=== PATIENT | female | born 1990 | race American Indian/Alaskan Native ===

== ENCOUNTER 2019-07-12 19:56 | Emergency (ER) | payer SELFPAY ==
[2019-07-12 20:09] VITALS: BP 119/71
--- NOTE | 2019-07-12 20:14 | Event Note ---
ED Screening Note Date of service: 07/12/19 Time: 20:11 ED Screening Note: This is a 29 y.o. F. that presents to the ER with vaginal discharge and dental pain. Reports vaginal discharge for 3-4 days and dental pain for 1 month. + pelvic pain, vaginal discharge - dysuria, back pain, urinary frequency This initial assessment/diagnostic orders/clinical plan/treatment(s) is/are subject to change based on patients health status, clinical progression and re- assessment by fellow clinical providers in the ED. Further treatment and workup at subsequent clinical providers discretion. Patient/guardian urged not to elope from the ED as their condition may be serious if not clinically assessed and managed. Initial orders include: UA and hCG
[2019-07-12 20:40] LABS: Bilirubin,Urine NEG (Negative); Blood,Urine NEG (Negative); Color,Urine Yellow (Yellow); HCG Qualitative,Urine Negative (Negative); Mucus,Urine 2+ /HPF; Protein,Urine <15 mg/dL mg/dL (Negative); Urobilinogen,Urine < 2.0 mg/dL (<2.0)
--- NOTE | 2019-07-12 21:12 | Emergency Department Report ---
ED General Adult HPI - General Chief complaint: Dental/Oral Stated complaint: POSS PREG/TOOTH INFECTION/VAG IRRITATION Time Seen by Provider: 07/12/19 20:10 Source: patient Mode of arrival: Ambulatory Limitations: No Limitations - History of Present Illness Initial comments: patient is a 29-year-old female presents emergency room with complaints of a le ft lower toothache that began a month ago. she states that she has a cracked tooth on the left lower side. States that she has not seen a dentist. Denies any fever or facial swelling. States that she has also had vaginal irritation for a over a week. She states she has white vaginal discharge which is causing irritation. denies any fever, chills, vomiting, diarrhea, abdominal pain, vaginal lesions/blisters. she states her LMP was 06/03/19 and she was concerned for the possibility of . - Related Data Previous Rx's Medication Instructions Recorded Last Taken Type Fluconazole [Diflucan TAB] 150 mg PO ONCE #1 tablet 07/12/19 Unknown Rx metroNIDAZOLE [Flagyl] 500 mg PO BID 7 Days #14 tab 07/12/19 Unknown Rx Allergies Allergy/AdvReac Type Severity Reaction Status Date / Time No Known Allergies Allergy Unverified 07/12/19 20:13 ED Review of Systems ROS: Stated complaint: POSS PREG/TOOTH INFECTION/VAG IRRITATION Other details as noted in HPI Comment: All other systems reviewed and negative ED Past Medical Hx - Past Medical History Previous Medical History?: Yes Additional medical history: Ectopic - Surgical History Past Surgical History?: Yes 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 - Social History Smoking Status: Never Smoker - Medications Home Medications: Home Medications Medication Instructions Recorded Confirmed Last Taken Type Fluconazole [Diflucan TAB] 150 mg PO ONCE #1 tablet 07/12/19 Unknown Rx metroNIDAZOLE [Flagyl] 500 mg PO BID 7 Days #14 tab 07/12/19 Unknown Rx ED Physical Exam - General Limitations: No Limitations General appearance: alert, in no apparent distress - Head Head exam: Present: atraumatic, normocephalic - Eye Eye exam: Present: normal appearance - ENT ENT exam: Present: mucous membranes moist, other (partially cracked tooth at tooth number 18 with dental carry present, no edema of the gum line, no facial edema, uvula is midline, no uvular edema) - Respiratory Respiratory exam: Present: normal lung sounds bilaterally. Absent: respiratory distress, wheezes, rales, rhonchi, stridor, chest wall tenderness, accessory muscle use, decreased breath sounds, prolonged expiratory - Cardiovascular Cardiovascular Exam: Present: regular rate, normal rhythm, normal heart sounds. Absent: systolic murmur, diastolic murmur, rubs, gallop - GI/Abdominal GI/Abdominal exam: Present: soft, normal bowel sounds. Absent: distended, tenderness, guarding, rebound, rigid - Back Exam Back exam: Absent: CVA tenderness (R), CVA tenderness (L) - Neurological Exam Neurological exam: Present: alert, oriented X3 - Psychiatric Psychiatric exam: Present: normal affect, normal mood - Skin Skin exam: Present: warm, dry, intact ED Course Vital Signs 07/12/19 07/12/19 20:02 20:13 Temperature 98.1 F 98.1 F Pulse Rate 91 H 91 H Respiratory 18 18 Rate Blood Pressure 119/71 119/71 O2 Sat by Pulse 97 97 Oximetry ED Medical Decision Making - Medical Decision Making patient is a 29-year-old female presents emergency room with complaints of a left lower toothache that began a month ago. she states that she has a cracked tooth on the left lower side. States that she has not seen a dentist. Denies any fever or facial swelling. States that she has also had vaginal irritation for a over a week. She states she has white vaginal discharge which is causing irritation. denies any fever, chills, vomiting, diarrhea, abdominal pain, vaginal lesions/blisters. she states her LMP was 06/03/19 and she was concerned for the possibility of . vitals are normal. urine preg is negative. UA without evidence of UTI. pt is afebrile no tachycardia. on exam: partially cracked tooth at tooth number 18 with dental carry present, no edema of the gum line, no facial edema, uvula is midline, no uvular edema, no signs of dental abscess/dental infection, no facial cellulitis, no abd tenderness on exam, no CVAT. no clinical s/sx of PID or TOA. Advised patient to take Tylenol or ibuprofen for her dental pain and to follow-up with a dentist. given list of community dental clinics. pt given prescription for Flagyl and fluconazole for her vaginitis. Advised patient to take medication as prescribed and do not drink alcohol while taking medication. advised patient please be seen by an [employer] or the health department for A full STD panel and to be treated. discussed with pt the importance of her follow up to avoid PID/infertility if STD is present, pt verbalized understanding. Also discussed with pt to patient to please have partner tested and treated as well. abstain from sexual intercourse for 10 days. Return to the emergency room for new or worsening symptoms. - Differential Diagnosis dental caries, dental abscess, vaginitis, STD, BV, yeast, UTI Critical care attestation.: If time is entered above; I have spent that time in minutes in the direct care of this critically ill patient, excluding procedure time. ED Disposition Clinical Impression: Toothache, Cracked tooth, Dental caries Vaginitis Qualifiers: Chronicity: acute Qualified Code(s): N76.0 - Acute vaginitis Disposition: - TO HOME OR SELFCARE Is pt being admited?: No Does the pt Need Aspirin: No Condition: Stable Instructions: Dental Caries (ED), Vaginitis (ED) Additional Instructions: take Tylenol or ibuprofen as needed for dental pain and follow-up with a dentist in the next 2-3 days. given list of community dental clinics. please take medication as prescribed and do not drink alcohol while taking medication. please be seen by an [employer] O[employer]ATOR or the health department in the next 2-3 days for A full STD panel and to be treated. it is very important you follow up to have this completed to see if you need further treatment. please have partner tested and treated as well. abstain from sexual intercourse for 10 days. Return to the emergency room for new or worsening symptoms. Prescriptions: Fluconazole [Diflucan TAB] 150 mg PO ONCE #1 tablet metroNIDAZOLE [Flagyl] 500 mg PO BID 7 Days #14 tab Referrals: [facility] [place]Outside] - 2-[address] [facility] [Outside] - 2-3 Days [facility] [Outside] - 2-3 Days [facility] [Outside] - 2-3 Days Time of Disposition: 21:13 Print Language: [id number]
== END 2019-07-12 21:24 | disposition home or self-care (01) ==
LOC: ED 19:56
DX: K03.81 Cracked tooth (principal); K02.9 Dental caries, unspecified; N76.0 Acute vaginitis; B96.89 Other specified bacterial agents as the cause of diseases classified elsewhere; Z79.899 Other long term (current) drug therapy
CPT/HCPCS: 81001; 81025; 99283